=== PATIENT | female | born 1935 | race Caucasian/White ===

== ENCOUNTER 2016-09-25 14:12 | Inpatient (IN) | payer MEDICARE ==
[~2016-09-25] VITALS: Ht 160 cm; Wt 68.9 kg
[2016-09-25 14:59] LABS: BASO % 0.4 % (0.0-2.0); EOS # 0.5 (0.0-0.7); EOS % 4.5 % (0-4.0); GRAN # 7.8 (1.4-6.5); GRAN % 75.1 % (42.2-75.2); LYMPH # 1.3 (1.2-3.4); LYMPH % 12.5 % (20.0-51.0); MEAN CELL VOLUME 88 fl (80.0-100.0); MEAN CORPUSCULAR HGB CONC 33 g/dl (33.0-37.0); MEAN PLATELET VOLUME 9.1 fl (7.4-10.4); MONO # 0.7 (0.1-0.6); PLATELET COUNT 244 K/mm3 (130-400); RED BLOOD COUNT 3.71 M/mm3 (4.10-5.30); REDCELL DISTRIBUTION WIDTH-CV 13.1 % (11.5-14.5); WHITE BLOOD COUNT 10.4 K/mm3 (4.8-10.8)
[2016-09-25 15:02] LABS: HEMATOCRIT 32.5 % (37.0-47.0); HEMOGLOBIN 10.8 g/dl (12.5-16.0); MEAN CORPUSCULAR HEMOGLOBIN 29 pg (27.0-31.0)
[2016-09-25 15:09] LABS: ADJUSTED CALCIUM 9.7 mg/dL (8.4-10.2); ALBUMIN 3.8 gm/dL (3.5-5.0); BILIRUBIN,TOTAL 0.6 mg/dL (0.0-1.0); CALCIUM 9.5 mg/dL (8.4-10.2); CREATININE, serum 3.06 mg/dL (0.52-1.25); POTASSIUM 4.7 mmol/L (3.4-5.0); TOTAL PROTEIN 7.2 gm/dL (6.4-8.2)
[2016-09-25] MEDS ORDERED: ALTACE 1.25MG1.25 MG PO (15:11)
[2016-09-25] MEDS ORDERED: LIPITOR 40MG TA40 MG PO (15:12)
[2016-09-25] MEDS ORDERED: COUMADIN 22.5 MG/TAB PO (15:12)
[2016-09-25] MEDS ORDERED: COUMADIN 5MG5 MG/TAB PO (15:13)
[2016-09-25] MEDS ORDERED: CARTIA XT120 MG PO (15:13)
[2016-09-25] MEDS ORDERED: OXYCONTIN30 MG PO (15:13)
[2016-09-25] MEDS ORDERED: LASIX 20MG TABL20 MG PO (15:13)
[2016-09-25] MEDS ORDERED: LOPRESSOR 550 MG/TAB PO (15:14)
[2016-09-25] MEDS ORDERED: LEVEMIR100 U/ML SQ (15:14)
[2016-09-25] MEDS ORDERED: NOVOLOG 100U100 U/M1 SQ (15:14)
[2016-09-25 15:39] LABS: TROPONIN-I 0.048 ng/mL (0.000-0.034)
[2016-09-25 16:24] LABS: PH 6 (5-8); SQUAMOUS EPITHELIAL 0-2 /hpf; URINE APPEARANCE Clear; URINE BACTERIA Rare /hpf; URINE BILIRUBIN Negative (NEGATIVE); URINE BLOOD Negative (NEGATIVE); URINE COLOR Yellow; URINE GLUCOSE Negative (NEGATIVE); URINE KETONE Negative (NEGATIVE); URINE RBC 0-2 /hpf; URINE UROBILINOGEN Negative (NEGATIVE)
[2016-09-25 19:22] VITALS: BP 142/97; PULSE 114; TEMP 99.5
[2016-09-25 20:00] VITALS: BP 129/65; PULSE 102; TEMP 99.4
[2016-09-25 22:00] VITALS: BP 91/75; PULSE 74; TEMP 98.6
[2016-09-26] VITALS (10 sets, daily range): BP systolic 91–145; BP diastolic 46–71; PULSE 62–111; TEMP 97.8–98.9
[2016-09-26 06:01] LABS: BASO # 0.1 (0.0-0.2); BASO % 0.2 % (0.0-2.0); GRAN # 18.7 (1.4-6.5); GRAN % 87.5 % (42.2-75.2); LYMPH # 0.9 (1.2-3.4); LYMPH % 4.3 % (20.0-51.0); MEAN CELL VOLUME 87 fl (80.0-100.0); MEAN CORPUSCULAR HGB CONC 33 g/dl (33.0-37.0); MEAN PLATELET VOLUME 9.4 fl (7.4-10.4); MONO # 1.4 (0.1-0.6); MONO % 6.7 % (1.7-9.3); PLATELET COUNT 236 K/mm3 (130-400); RED BLOOD COUNT 3.57 M/mm3 (4.10-5.30); REDCELL DISTRIBUTION WIDTH-CV 13.1 % (11.5-14.5)
[2016-09-26 06:09] LABS: HEMATOCRIT 31.2 % (37.0-47.0); HEMOGLOBIN 10.3 g/dl (12.5-16.0); MEAN CORPUSCULAR HEMOGLOBIN 29 pg (27.0-31.0); WHITE BLOOD COUNT 21.4 K/mm3 (4.8-10.8)
[2016-09-26 06:26] LABS: INR 4.5 (0.8-3.0); PROTHROMBIN TIME 52.3 SECONDS (9.7-12.8)
[2016-09-26 06:38] LABS: CALCIUM 9.1 mg/dL (8.4-10.2); CREATININE, serum 2.94 mg/dL (0.52-1.25)
[2016-09-26 06:42] LABS: TROPONIN-I 0.065 ng/mL (0.000-0.034)
[2016-09-27 03:04] VITALS: BP 131/83; PULSE 110; TEMP 98.8
[2016-09-27 08:34] VITALS: BP 124/63; PULSE 120; TEMP 98.8
[2016-09-27 09:23] LABS: BASO % 0.3 % (0.0-2.0); EOS # 0.1 (0.0-0.7); EOS % 0.7 % (0-4.0); GRAN # 12.7 (1.4-6.5); GRAN % 86.5 % (42.2-75.2); LYMPH # 0.9 (1.2-3.4); MEAN CELL VOLUME 87 fl (80.0-100.0); MEAN CORPUSCULAR HGB CONC 33 g/dl (33.0-37.0); MEAN PLATELET VOLUME 9.4 fl (7.4-10.4); MONO # 0.8 (0.1-0.6); MONO % 5.7 % (1.7-9.3); PLATELET COUNT 210 K/mm3 (130-400); RED BLOOD COUNT 3.61 M/mm3 (4.10-5.30); REDCELL DISTRIBUTION WIDTH-CV 13.3 % (11.5-14.5); WHITE BLOOD COUNT 14.6 K/mm3 (4.8-10.8)
[2016-09-27 09:32] LABS: HEMATOCRIT 31.3 % (37.0-47.0); HEMOGLOBIN 10.4 g/dl (12.5-16.0); MEAN CORPUSCULAR HEMOGLOBIN 29 pg (27.0-31.0)
[2016-09-27 09:36] LABS: CALCIUM 8.9 mg/dL (8.4-10.2); CREATININE, serum 2.41 mg/dL (0.52-1.25); POTASSIUM 4.5 mmol/L (3.4-5.0)
[2016-09-27 09:38] LABS: INR 6.5 (0.8-3.0); PROTHROMBIN TIME 75.9 SECONDS (9.7-12.8)
[2016-09-27 11:53] VITALS: BP 149/52; PULSE 75; TEMP 99.3
[2016-09-27 16:04] VITALS: BP 132/50; PULSE 82; TEMP 99
[2016-09-27 20:46] VITALS: BP 154/83; PULSE 67; TEMP 98.2
[2016-09-27 23:08] VITALS: BP 135/53; PULSE 77; TEMP 98.7
[2016-09-28 03:32] VITALS: BP 118/52; PULSE 72; TEMP 98
[2016-09-28 07:23] LABS: ADJUSTED CALCIUM 9.5 mg/dL (8.4-10.2); ALBUMIN 3.2 gm/dL (3.5-5.0); BILIRUBIN,TOTAL 0.4 mg/dL (0.0-1.0); CALCIUM 8.9 mg/dL (8.4-10.2); CREATININE, serum 2.34 mg/dL (0.52-1.25); TOTAL PROTEIN 6.3 gm/dL (6.4-8.2)
[2016-09-28 07:34] LABS: PROTHROMBIN TIME 66.1 SECONDS (9.7-12.8)
[2016-09-28 07:35] LABS: INR 5.6 (0.8-3.0)
[2016-09-28 08:20] VITALS: BP 108/42; PULSE 72; TEMP 97.7
[2016-09-28] MEDS ORDERED: MULTAQ400 MG PO (10:57)
[2016-09-28] MEDS ORDERED: CEFTIN 250250 MG/TAB PO (11:05)
[2016-09-28 11:58] VITALS: BP 108/53; PULSE 68; TEMP 98.2
== END 2016-09-28 14:10 | disposition home or self-care (01) | DRG 281 ==
LOC: COL.ER 14:12 → IMCU 17:23 → MEDICAL 17:23 → IMCU 19:00 → MEDICAL 09-26 12:28
PROVIDERS: Emergency Medicine; Internal Medicine; Internal Medicine Cardiovascular Disease; Nurse Practitioner Family
DX: I21.4 Non-ST elevation (NSTEMI) myocardial infarction (principal); I50.22 Chronic systolic (congestive) heart failure; N39.0 Urinary tract infection, site not specified; N18.4 Chronic kidney disease, stage 4 (severe); I48.0 Paroxysmal atrial fibrillation; Z66 Do not resuscitate; E11.22 Type 2 diabetes mellitus with diabetic chronic kidney disease; I25.10 Atherosclerotic heart disease of native coronary artery without angina pectoris; Z79.01 Long term (current) use of anticoagulants; Z79.4 Long term (current) use of insulin; Z95.1 Presence of aortocoronary bypass graft; B96.20 Unspecified Escherichia coli [E. coli] as the cause of diseases classified elsewhere
CPT/HCPCS: 99222-AI; 99232-AI; 99233-AI; 99239; J0696; J1815; J2270; J7030

== ENCOUNTER → 2016-11-05 | Outpatient (CLI) | payer MEDICARE ==
[~2016-11-05] MED LIST: ALTACE 1.25MG1.25 MG PO; CARTIA XT120 MG PO; CEFTIN 250250 MG/TAB PO; COUMADIN 22.5 MG/TAB PO; COUMADIN 5MG5 MG/TAB PO; LASIX 20MG TABL20 MG PO; LEVEMIR100 U/ML SQ; LIPITOR 40MG TA40 MG PO; LOPRESSOR 550 MG/TAB PO; MULTAQ400 MG PO; NOVOLOG 100U100 U/M1 SQ; OXYCONTIN30 MG PO
== END ==
LOC: COL.VAS 12:19
DX: I65.22 Occlusion and stenosis of left carotid artery (principal); R09.89 Other specified symptoms and signs involving the circulatory and respiratory systems

== ENCOUNTER 2017-08-18 07:39 | Emergency (ER) | payer MEDICARE ==
[2017-08-18 07:44] VITALS: TEMP 100.6
[2017-08-18 07:53] LABS: BASO # 0.1 (0.0-0.2); BASO % 0.6 % (0.0-2.0); EOS # 0.1 (0.0-0.7); EOS % 1.1 % (0-4.0); GRAN # 7.5 (1.4-6.5); GRAN % 78.7 % (42.2-75.2); HEMATOCRIT 37.9 % (37.0-47.0); HEMOGLOBIN 12.2 g/dl (12.5-16.0); LYMPH % 10.4 % (20.0-51.0); MEAN CELL VOLUME 85 fl (80.0-100.0); MEAN CORPUSCULAR HEMOGLOBIN 27 pg (27.0-31.0); MEAN CORPUSCULAR HGB CONC 32 g/dl (33.0-37.0); MEAN PLATELET VOLUME 8.9 fl (7.4-10.4); MONO # 0.8 (0.1-0.6); MONO % 8.5 % (1.7-9.3); PLATELET COUNT 207 K/mm3 (130-400); RED BLOOD COUNT 4.47 M/mm3 (4.10-5.30); WHITE BLOOD COUNT 9.5 K/mm3 (4.8-10.8)
[2017-08-18 07:59] LABS: INR 1.2 (0.8-3.0)
[2017-08-18 08:02] LABS: ADJUSTED CALCIUM 9.4 mg/dL (8.4-10.2); ALBUMIN 4.2 gm/dL (3.5-5.0); BILIRUBIN,TOTAL 1.5 mg/dL (0.0-1.0); CALCIUM 9.6 mg/dL (8.4-10.2); CREATININE, serum 2.15 mg/dL (0.52-1.25); POTASSIUM 5.2 mmol/L (3.4-5.0); TOTAL PROTEIN 7.1 gm/dL (6.4-8.2)
[2017-08-18 08:16] LABS: TROPONIN-I 0.047 ng/mL (0.000-0.034)
[2017-08-18 08:25] LABS: INFLUENZA A NEGATIVE; INFLUENZA B NEGATIVE
[2017-08-18 08:40] LABS: ARTERIAL BLD GAS O2 SATURATION 90.7 % (92-100); ARTERIAL BLD GAS TCO2 CT 28.2; ARTERIAL BLOOD GAS BASE EXCESS 3.1 (-2-2); ARTERIAL BLOOD GAS PHT 7.46 C (7.35-7.45); ARTERIAL BLOOD GAS PO2 59.7 mmHg (80-100); ARTERIAL BLOOD GAS PO2T 59.7 (80-100); ARTERIAL BLOOD GAS pH 7.46 (7.35-7.45); OXYHEMOGLOBIN 89.8 %
[2017-08-18 08:42] LABS: ALLEN TEST YES; ALLENS TEST RESULT PASS; ATS? YES
[2017-08-18] MEDS ORDERED: CORDARONE200 MG/TAB PO (09:32)
[2017-08-18] MEDS ORDERED: LASIX 20MG TABL20 MG PO (09:32)
[2017-08-18] MEDS ORDERED: LIPITOR 40MG TA40 MG PO (09:32)
[2017-08-18] MEDS ORDERED: COUMADIN 1MG1 MG/TAB PO (09:33)
[2017-08-18] MEDS ORDERED: ROXICODONE15 MG PO (09:33)
[2017-08-18] MEDS ORDERED: CARTIA XT120 MG PO (09:34)
[2017-08-18] MEDS ORDERED: TOPROL XL 50MG50 MG PO (09:34)
[2017-08-18 10:01] LABS: COLLECTION METHOD CATHETER
[2017-08-18 10:09] LABS: PH 6 (5-8); SQUAMOUS EPITHELIAL 0-2 /hpf; URINE APPEARANCE Clear; URINE BACTERIA None Seen /hpf; URINE BILIRUBIN Negative (NEGATIVE); URINE BLOOD Negative (NEGATIVE); URINE COLOR Yellow; URINE GLUCOSE 3+ (NEGATIVE); URINE KETONE Negative (NEGATIVE); URINE LEUKOCYTE ESTERASE Trace (NEGATIVE); URINE PROTEIN(semi-quant) 1+ (NEGATIVE); URINE RBC 0-2 /hpf; URINE UROBILINOGEN Negative (NEGATIVE); URINE WBC 0-2 /hpf
[2017-08-18 10:43] VITALS: BP 141/65; PULSE 91
== END 2017-08-18 10:40 | disposition short-term general hospital (02) ==
LOC: COL.ER 07:39
PROVIDERS: Emergency Medicine
DX: I50.9 Heart failure, unspecified (principal); J96.91 Respiratory failure, unspecified with hypoxia; I48.2 Chronic atrial fibrillation; I25.10 Atherosclerotic heart disease of native coronary artery without angina pectoris; I25.2 Old myocardial infarction; Z95.1 Presence of aortocoronary bypass graft; Z95.5 Presence of coronary angioplasty implant and graft; Z79.01 Long term (current) use of anticoagulants
CPT/HCPCS: J0696; J1644; J1940; J2060; J7030

== ENCOUNTER 2018-08-01 13:30 | Outpatient (RCR) | payer MEDICARE ==
[~2018-08-01 13:30] MED LIST changes: +ASPIRIN 81M81 MG/TA2 PO; +CORDARONE200 MG/TAB PO; +COUMADIN 1MG1 MG/TAB PO; +ELIQUIS 2.5 PO; +LEVAQUIN 2250 MG/TAB PO; +MELAT3MGTAB PO; +NAMENDA 10MG TA10 MG PO; +NITROSTAT0.4 MG/TAB SL; +PAXIL 10MG10 MG PO; +ROXICODONE15 MG PO; +TOPROL XL 50MG50 MG PO
== END 2018-10-17 | disposition home or self-care (01) ==
LOC: WSC
DX: R53.1 Weakness (principal); Z91.81 History of falling
CPT/HCPCS: G8978-GP; G8979-GP

== ENCOUNTER 2018-11-30 09:42 | Inpatient (IN) | payer MEDICARE, OTHER ==
[~2018-11-30] VITALS: Ht 162.6 cm; Wt 69.3 kg
[2018-11-30] MEDS ORDERED: NORCO 325 MG-51 TAB PO (10:24)
[2018-11-30 10:47] LABS: COLLECTION METHOD CATHETER
[2018-11-30 10:50] LABS: BASO % 0.6 % (0.0-2.0); EOS # 0.1 (0.0-0.7); EOS % 1.3 % (0-4.0); GRAN # 4.3 (1.4-6.5); GRAN % 80.1 % (42.2-75.2); HEMOGLOBIN 11.2 g/dl (12.5-16.0); LYMPH # 0.3 (1.2-3.4); LYMPH % 6.3 % (20.0-51.0); MEAN CELL VOLUME 88 fl (80.0-100.0); MEAN CORPUSCULAR HEMOGLOBIN 28 pg (27.0-31.0); MEAN CORPUSCULAR HGB CONC 32 g/dl (33.0-37.0); MEAN PLATELET VOLUME 10.6 fl (7.4-10.4); MONO # 0.6 (0.1-0.6); PLATELET COUNT 136 K/mm3 (130-400); RED BLOOD COUNT 4.01 M/mm3 (4.10-5.30); REDCELL DISTRIBUTION WIDTH-CV 17.3 % (11.5-14.5)
[2018-11-30 10:51] LABS: HEMATOCRIT 35.4 % (37.0-47.0)
[2018-11-30 10:59] LABS: PH 5 (5-8); SQUAMOUS EPITHELIAL None Seen /hpf; URINE APPEARANCE Clear; URINE BACTERIA None Seen /hpf; URINE BILIRUBIN Negative (NEGATIVE); URINE BLOOD Negative (NEGATIVE); URINE COLOR Yellow; URINE GLUCOSE Negative (NEGATIVE); URINE KETONE Negative (NEGATIVE); URINE LEUKOCYTE ESTERASE Negative (NEGATIVE); URINE NITRATE Negative (NEGATIVE); URINE PROTEIN(semi-quant) 1+ (NEGATIVE); URINE RBC 0-2 /hpf; URINE UROBILINOGEN Negative (NEGATIVE)
[2018-11-30 11:04] LABS: POTASSIUM 5.1 mmol/L (3.4-5.0)
[2018-11-30 11:07] LABS: ALBUMIN 3.8 gm/dL (3.5-5.0); BILIRUBIN,TOTAL 0.8 mg/dL (0.0-1.0); C-REACTIVE PROTEIN 2.6 mg/dL (0.0-0.9); CALCIUM 9.2 mg/dL (8.4-10.2); CREATININE, serum 2.64 (0.52-1.25); TOTAL PROTEIN 6.4 gm/dL (6.4-8.2)
[2018-11-30 11:14] LABS: ERYTHROCYTE SEDIMENTATION RATE 1 mm/hr (0-30)
--- NOTE | 2018-11-30 13:50 | NUR ---
PT BROUGHT TO ROOM FROM ED. HELPED PT ONTO COMMODE AND ORIENTED PT TO ROOM.
[2018-11-30 14:07] VITALS: BP 109/79; PULSE 117; TEMP 99.6
[2018-11-30] MEDS ORDERED: PROTONIX 40MG T40 MG PO (15:13)
[2018-11-30] MEDS ORDERED: CORTISPORIN OTI10 ML OT (15:14)
[2018-11-30] MEDS ORDERED: NITROSTAT0.4 MG/TAB SL (15:15)
[2018-11-30] MEDS ORDERED: ASPIRIN 81M81 MG/TA2 PO (15:15)
[2018-11-30] MEDS ORDERED: ALBUTEROL0.83 MG/ML IH (15:17)
[2018-11-30] MEDS ORDERED: LOPRESSOR 550 MG/TAB PO (15:19)
[2018-11-30] MEDS ORDERED: ULTRAM 50MG TAB50 MG PO (15:19)
[2018-11-30] MEDS ORDERED: SSD25 GM TP (15:22)
[2018-11-30 16:06] VITALS: BP 127/70; PULSE 116; TEMP 99.3
--- NOTE | 2018-11-30 19:05 | NUR ---
Pt lying in bed, eyes closed. Gave hand off report to Elena ALONZO.
[2018-11-30 20:06] VITALS: BP 134/114; PULSE 121; TEMP 99
--- NOTE | 2018-11-30 20:21 | NUR ---
Heart rate has been increasing in the 130s with any type of exertion. Does decrease at rest, 110-120s. Called and let hospitalist know. New EKG was performed. Continues to have A-fib. Given scheduled HS medications as ordered. No further orders at this time. Sore to right hip open to air. Sores to toes open to air. Denies having pain and discomfort. Patient's breathing is labored with any exertion, and complains of SOB. LS CTA on right, rhonchi on left. Peripheral INT to left AC is patent, and without redness, warmth, swelling, and pain. Skin is pale. Denies having any needs or concerns at this time. Call light is within reach.
[2018-11-30 20:45] VITALS: BP 107/62; PULSE 108; TEMP 99.2
--- NOTE | 2018-11-30 22:48 | NUR ---
VS rechecked at 2044: 99.2 108 18 107/62 96% RA.
[2018-11-30 23:07] VITALS: BP 95/67; PULSE 98; TEMP 99
--- NOTE | 2018-11-30 23:24 | NUR ---
Patient showing s/s of pain and discomfort: facial grimacing, yelling out, moaning, etc. When asked patient rated pain at a 8, unable to describe. Given PRN Percocet per orders. Repositioned in bed, and given warm blanekt. Voices no other needs or concerns at this time. In bed at this time. Call light is within reach. Bed alarm is on.
[2018-12-01 04:55] VITALS: BP 136/69; PULSE 92; TEMP 97.3
--- NOTE | 2018-12-01 05:45 | NUR ---
Patient yelling out around 0415. Stated she was having pain. Patient with facial grimacing. Unable to describe pain. Given PRN Oxycodone per orders. Patient diaphoretic at that time. Blood sugar checked with a result of 54. Rechecked to make sure it was accurate, result was 52. Given 4 oz orange juice. BS rechecked at 0450 with a result of 88. Stated that she was feeling better. Call placed to [facility]. Given update on blood sugar. New order received for hypoglycemic protocol, and to change sliding scale insluin from high to moderate. MAR updated. Patient has been repositioned from left side to back throughout the night to stay off of pressure ulcer to right hip. LS continues have rhonchi in all lobes at this time. Has more frequent moist cough, but unable to produce sputum. Oxygen level 97% RA. Denies having SOB and dypsnea. HOB left elevated. Patient's heart rate has not been noted to increase above 120s since the beginning of the shift. Patient resting in bed with eyes closed at this time. Call light is within reach.
[2018-12-01 07:17] VITALS: BP 125/62; PULSE 83; TEMP 97.5
[2018-12-01 09:13] LABS: BASO % 0.4 % (0.0-2.0); EOS % 0.3 % (0-4.0); GRAN % 79.1 % (42.2-75.2); HEMOGLOBIN 10.3 g/dl (12.5-16.0); LYMPH # 0.7 (1.2-3.4); LYMPH % 8.7 % (20.0-51.0); MEAN CELL VOLUME 89 fl (80.0-100.0); MEAN CORPUSCULAR HEMOGLOBIN 28 pg (27.0-31.0); MEAN CORPUSCULAR HGB CONC 32 g/dl (33.0-37.0); MEAN PLATELET VOLUME 10.5 fl (7.4-10.4); MONO # 0.8 (0.1-0.6); MONO % 10.6 % (1.7-9.3); PLATELET COUNT 128 K/mm3 (130-400); RED BLOOD COUNT 3.66 M/mm3 (4.10-5.30); REDCELL DISTRIBUTION WIDTH-CV 17.4 % (11.5-14.5)
[2018-12-01 09:19] LABS: CALCIUM 8.5 mg/dL (8.4-10.2); CREATININE, serum 2.65 (0.52-1.25); POTASSIUM 4.4 mmol/L (3.4-5.0)
[2018-12-01 09:36] LABS: HEMATOCRIT 32.7 % (37.0-47.0)
[2018-12-01 11:16] VITALS: BP 100/47; PULSE 76; TEMP 97.5
--- NOTE | 2018-12-01 13:14 | NUR ---
SW attended clinical rounds to discuss discharge planning. Patient lives at home with her , Osei, but patient's son, Jamshid, and Osei report patient needs intermodal customer service care because Osei cannot care for patient at home anymore. Patient's PCP is Dr Alcaraz and she obtains prescriptions from [facility]. Patient doesn't currently use any home health services and she uses a wheelchair for mobility. Patient's son in unsure if patient has a DPOA. Jamshid also reported Osei has looked into [facility] for prison care and he has looked at [facility]. SW provided medicare.gov nursing facility resource list. SW will follow up with patient and family to complete choice form. Patient's son also expressed meeding help with completing a medicaid application for patient. WALI contacted Amy, financial counselor, and she will meet with patient this afternoon.
--- NOTE | 2018-12-01 13:50 | NUR ---
Pt family stated pt was diaphoretic. Checked BS, came back 51. Gave pt two cups of orange juice, and crackers with peanut butter. Rechecked in 20 min and went up to 74. Will continue to monitor.
--- NOTE | 2018-12-01 15:24 | NUR ---
Pt bs was 68. Gave orange juice and more crackers with peanut butter. Will recheck.
[2018-12-01 15:57] VITALS: BP 96/42; PULSE 68; TEMP 97.5
--- NOTE | 2018-12-01 16:42 | NUR ---
Pt lying in bed, awakes to touch. Cleaned right hip pressure ulcer with ready bath, rinsed with saline and patted dry. Added skin barrier wipe, [employer] to eschar and put allevyn on.
--- NOTE | 2018-12-01 18:43 | NUR ---
PT LYING IN BED WITH EYES CLOSED. BRAUN OFF REPORT GIVEN TO JAMI ALONZO
[2018-12-01 21:56] VITALS: BP 141/92; PULSE 110; TEMP 99.5
--- NOTE | 2018-12-01 22:05 | NUR ---
Blood sugar checked with a result of 56. Called to [facility] to request to initiate PRN order for D10W at 50 ml/hr due to blood sugars not being above 88 throughout the day. Also asked f she wanted Levemir to be held tonight. Order received to start the D10W per PRN order. Also hold Levemir for tonight. Also to start patient on supplemental drinks due to poor oral nutritional intake. Patient given Ensure. Patient assisted to the commode and urinated. Complaining of pain to back, rated at a 4. When asked to describe pain, patient stated it was "violent." Given PRN Oxycodone. Patient is on oxygen at 1 L/min via NC. Does complain of SOB and dyspnea with exertion. Also, while transferring, patient's heart rate increased to above 130s. Continues to have frequent moist cough, unable to produce sputum. In bed at this time. Call light is within reach.
--- NOTE | 2018-12-01 22:23 | NUR ---
Blood sugar rechecked with a result of 78.
[2018-12-01 23:07] VITALS: BP 105/70; PULSE 124; TEMP 98.5
[2018-12-02 03:46] VITALS: BP 115/83; PULSE 123; TEMP 99.6
--- NOTE | 2018-12-02 03:55 | NUR ---
Patient was given PRN Oxycodone for complaints of pain at beginning of shift. Patient went to the bathroom at 0330. Complaining of severe pain. Patient moaning, having facial grimacing, and stated that she is having level 8 pain to back, radiating to her hips. Given PRN Oxycodone as requested for pain. Repositioned in bed. Voices no other needs or concerns at this time. Continues on D10W at 50 ml/hr to peripheral IV to right AC. Continues to wear oxygen at 1 L/min via NC. Resting in bed with eyes closed at this time. Call light is within reachh.
--- NOTE | 2018-12-02 05:43 | NUR ---
Blood sugar checked with a result of 224. D10W IV stopped. Patient states that she is not having any pain or discomfort at this time, but states that as soon as she moves she starts to have pain. Voices no needs or concerns at this time. Patient smiling when staff talk with her, and thankful towards staff. Resting in bed with eyes closed at this time. Call light is within reach.
--- NOTE | 2018-12-02 07:00 | NUR ---
Received bedside report from cook night nurse. Pt was in bed and awake, stated no needs at this time. Will continue to monitor.
[2018-12-02 08:10] VITALS: BP 93/57; PULSE 72; TEMP 98.4
[2018-12-02 08:24] LABS: BASO % 0.3 % (0.0-2.0); EOS % 0.4 % (0-4.0); GRAN # 6.7 (1.4-6.5); GRAN % 84.3 % (42.2-75.2); HEMATOCRIT 32.5 % (37.0-47.0); HEMOGLOBIN 10.1 g/dl (12.5-16.0); LYMPH # 0.6 (1.2-3.4); LYMPH % 7.8 % (20.0-51.0); MEAN CELL VOLUME 89 fl (80.0-100.0); MEAN CORPUSCULAR HEMOGLOBIN 28 pg (27.0-31.0); MEAN CORPUSCULAR HGB CONC 31 g/dl (33.0-37.0); MEAN PLATELET VOLUME 10.2 fl (7.4-10.4); MONO # 0.5 (0.1-0.6); MONO % 6.4 % (1.7-9.3); PLATELET COUNT 123 K/mm3 (130-400); RED BLOOD COUNT 3.67 M/mm3 (4.10-5.30); REDCELL DISTRIBUTION WIDTH-CV 17.2 % (11.5-14.5)
[2018-12-02 08:39] LABS: CALCIUM 8.1 mg/dL (8.4-10.2); CREATININE, serum 2.61 (0.52-1.25); POTASSIUM 4.8 mmol/L (3.4-5.0)
--- NOTE | 2018-12-02 09:00 | NUR ---
Assessment charted with crackles and wheezes noted. Pt dislodged IV and new one was placed in right forearm with two attempts. Pt coughing with wet sounding lungs and unable to expectorate. Pt is complaining of pain in right hip, but states that pain is better controlled today. Held Levemir insulin due to previous trouble keeping blood sugars controlled. Also held blood pressure medications per Dr. Rodas' direction due to low blood pressure. Placed new dressing on right hip for wound. O2 is on at 1 L. Doctor will be to visit shortly, will inform him about the wet sounding lungs. Will continue to monitor.
--- NOTE | 2018-12-02 09:44 | NUR ---
WALI met with patient's , Osei, and son, Jamshid, about SNF choice form. Jamshid reports he spoke with Rhonda from [facility] and she is planning to visit patient today. Osei signed choice form for 1. [facility] and 2. [facility]. SW will fax referrals to both facilities and also inform them that patient will need terminal worker care after a skilled stay.
[2018-12-02 13:07] VITALS: BP 107/66; PULSE 77; TEMP 98.4
[2018-12-02 16:34] VITALS: BP 117/51; PULSE 74; TEMP 98.2
--- NOTE | 2018-12-02 18:36 | NUR ---
Pt has stated that her pain was better controlled today, with less throbbing pain in her hip. Her appetite had been diminish with most meals, but she ate well for supper. Pt did well getting up to the commode with x2 assist. Will continue to monitor pt until bedside report is given to the nightshift nurse.
[2018-12-02 19:52] VITALS: BP 98/69; PULSE 86; TEMP 98.2
--- NOTE | 2018-12-02 22:34 | NUR ---
Patient assessed around 2100. Patient with audible gurgles heard. LS with coarse crackles throughout. Oxygen level 97% on oxygen at 1 L/min via NC. Denies having SOB and dypsnea, but does complain and have labored breathing with any type of exertion, even repositioning in bed. RT gave nebulizer treatment. Heart rate irregular, chronic for patient. Bowel sounds hypoactive. Denies feeling constipated at this time. Does report she is still passing gas. Abdomen soft, nondistended, and non-tender. Non-pitting edema noted to bilateral hands. 1+ edema continues to BLE. Dressings to right hip and right thigh are CDI. Denies having any needs or concerns at this time. Denies having pain and discomfort. No s/sx of pain or discomfort noted so far this shift, such as facial grimacing and moaning. Resting in bed with eyes closed at this time. Call light is within reach.
[2018-12-02 23:13] VITALS: BP 97/75; PULSE 105; TEMP 100
--- NOTE | 2018-12-03 04:27 | NUR ---
Patient has received pain medication once so far this shift for back pain. Continues to wear oxygen at 1 L/min via NC. LS coarse crackles. Frequent moist cough continues, increases when awake. HOB remains elevated in bed. Denies having SOB and dyspnea. Voices no needs or concerns at this time. Resting in bed with eyes closed at this time. Call light is within reach.
[2018-12-03 05:09] VITALS: BP 94/65; PULSE 64; TEMP 98
[2018-12-03 06:27] LABS: BASO % 0.3 % (0.0-2.0); EOS # 0.1 (0.0-0.7); EOS % 0.7 % (0-4.0); GRAN # 5.7 (1.4-6.5); HEMOGLOBIN 10.7 g/dl (12.5-16.0); LYMPH # 0.7 (1.2-3.4); LYMPH % 10.3 % (20.0-51.0); MEAN CELL VOLUME 88 fl (80.0-100.0); MEAN CORPUSCULAR HEMOGLOBIN 28 pg (27.0-31.0); MEAN CORPUSCULAR HGB CONC 31 g/dl (33.0-37.0); MEAN PLATELET VOLUME 10.1 fl (7.4-10.4); MONO # 0.5 (0.1-0.6); MONO % 6.9 % (1.7-9.3); PLATELET COUNT 125 K/mm3 (130-400); RED BLOOD COUNT 3.87 M/mm3 (4.10-5.30); REDCELL DISTRIBUTION WIDTH-CV 17.2 % (11.5-14.5)
[2018-12-03 06:31] LABS: HEMATOCRIT 34.1 % (37.0-47.0)
[2018-12-03 06:32] LABS: CREATININE, serum 2.52 (0.52-1.25); POTASSIUM 4.4 mmol/L (3.4-5.0)
[2018-12-03 08:36] VITALS: BP 100/52; PULSE 71; TEMP 97.8
--- NOTE | 2018-12-03 08:57 | NUR ---
Pt assessment complete. Pt is A/O x3. She is currently sitting up in bed eating breakfast. Pt is hard of hearing but A/O x3. Her breathing is unlabored but patient has audible gurgling, pt reminded to cough and deep breath. Pt denies SOB. Pain to lower back/R hip, lidoderm patch placed to area. Pt denies any N/V. No needs at this time. Call light within reach, at bedside.
--- NOTE | 2018-12-03 10:56 | NUR ---
WALI contacted [facility] about accepting the patient for a prison stay. [facility] has accepted the patient for services upon discharge. WALI faxed update to [facility]. WALI will continue to follow.
[2018-12-03 11:36] VITALS: BP 95/59; PULSE 105; TEMP 98.7
[2018-12-03 18:16] VITALS: BP 103/60; PULSE 98; TEMP 98.1
--- NOTE | 2018-12-03 19:10 | NUR ---
Pt had uneventful day. Pt did not have any needs or concerns. Pain well controlled with patch and PRN pain medications. Pt denies needs at this time. Call light within reach.
[2018-12-03 19:59] VITALS: BP 90/53; PULSE 80; TEMP 98.8
--- NOTE | 2018-12-03 20:20 | NUR ---
Pt resting in bed napping, has a dry cough, has some C/O pain, shift assessments complete, left Pt call light in reach, bed in lowest position.
[2018-12-03 23:47] VITALS: BP 113/98; PULSE 86; TEMP 99.2
[2018-12-04] VITALS (292 sets, daily range): BP systolic 92–109; BP diastolic 51–76; PULSE 76–147; TEMP 97.8–99.4; O2SAT 74–100
--- NOTE | 2018-12-04 05:07 | NUR ---
Pt slept some during the night, she did have C/O pain in her buttox area around the location where the wound is located, and in her back related to her chronic back pain, medications were administered for pain relief. VS have remained stable overnight.
--- NOTE | 2018-12-04 07:42 | NUR ---
Pt assessment complete. Pt is moaning in bed upon entry, pt reports pain "everywhere", she also admits to SOB. Tracheal gurgling audible, pt encouraged to cough and deep breath. Pt assisted to the cammode with 2 assist, patient very weak. Urinated 100mls, bladder scan performed post void, 217ml visualized. Dressings to R hip, R thigh and LFA changed. RT contacted for breathing treatment. at bedside at this time. Will continue to monitor.
--- NOTE | 2018-12-04 08:27 | NUR ---
Pt seems to be resting more comfortably at this time. Breathing unchanged after breathing treatment. 5mg IV Lopressor given at this time, per Dr. Rodas order. at bedside. Will continue to monitor.
[2018-12-04 08:40] LABS: BASO % 0.3 % (0.0-2.0); EOS % 0.4 % (0-4.0); GRAN # 6.2 (1.4-6.5); HEMOGLOBIN 11.3 g/dl (12.5-16.0); LYMPH # 0.6 (1.2-3.4); LYMPH % 7.9 % (20.0-51.0); MEAN CELL VOLUME 87 fl (80.0-100.0); MEAN CORPUSCULAR HEMOGLOBIN 28 pg (27.0-31.0); MEAN CORPUSCULAR HGB CONC 32 g/dl (33.0-37.0); MEAN PLATELET VOLUME 10.2 fl (7.4-10.4); MONO # 0.4 (0.1-0.6); MONO % 5.4 % (1.7-9.3); PLATELET COUNT 127 K/mm3 (130-400); RED BLOOD COUNT 4.06 M/mm3 (4.10-5.30); REDCELL DISTRIBUTION WIDTH-CV 16.9 % (11.5-14.5)
[2018-12-04 08:42] LABS: HEMATOCRIT 35.2 % (37.0-47.0)
[2018-12-04 08:47] LABS: CALCIUM 7.9 mg/dL (8.4-10.2); CREATININE, serum 2.42 (0.52-1.25)
--- NOTE | 2018-12-04 11:10 | NUR ---
Report given to CLINTON Berry in ICU. Patient's family at bedside, updated with POC. Verbalized understanding, pt wheeled to ICU at this time.
--- NOTE | 2018-12-04 11:11 | NUR ---
Telephone report received from CLINTON Slade.
--- NOTE | 2018-12-04 11:20 | NUR ---
Patient transferred to ICU#8 via bed from [facility]. Assessment complete, patient moaning in pain. Family at bedside. Dr. Medina here to speak with family.
--- NOTE | 2018-12-04 12:15 | NUR ---
Family has decided to make patient comfort care at this time.
--- NOTE | 2018-12-04 18:01 | NUR ---
Report called to CLINTON Slade.
--- NOTE | 2018-12-04 18:35 | NUR ---
Patient transferred to [facility] via bed, with all belongings.
--- NOTE | 2018-12-04 19:16 | NUR ---
Pt arrived back to room 312, she is moaning in bed, PRN Roxanol administered. at bedside, report given to CLINTON Parker.
--- NOTE | 2018-12-04 20:15 | NUR ---
Shift assessment complete. Pt resting calmly in bed, drowsy but able to wake. Resp reg et even c occasional moans. Occasional grimace noted. PRN pain medications admin per comfort order set. Repositioned for comfort. Pt s further needs. Call light in reach, bed alarm on et pt visible from nurses station. Will monitor closely.
--- NOTE | 2018-12-05 02:26 | NUR ---
Pt resting in bed, drowsy. Able to wake pt for brief periods to assess pain et other needs. Pt makes limited eye contact et int nods head appropriately to yes/no questions, but is otherwise very minimally responsive. Pt has been resting c min movement but frequent moaning. Treacheal sounds increasingly audible. Pt repositioned for comfort. Bed alarm on et pt visible from nurses station. Will continue to monitor.
--- NOTE | 2018-12-05 05:03 | NUR ---
Pt resting in bed, condition unchanged. Pt continues to have int moan et facial grimmace. Continue repositioning et PRN meds for comfort.
--- NOTE | 2018-12-05 08:10 | NUR ---
Report received, patient is resting in bed with eyes closed, is attempting to give patient water, she does not accept. verbalizes that he feels patient is overmedicated and is wanting her to become more alert. He is noted to be touching patient and continuing to give her water, she is noted to start grimacing and moaning. He requests for her to receive pain medication. Son is also at bedside. He is involved wanting to know vital signs. Radial pulse is attempted to be obtained but patient is very edematous on her arms, when palpating, patient is noted to have pitting edema over her wrists which caused her pain. Did check with Spo2 monitor and heart rate is elevated in 120-130s, oxygen is observed to be 82-83%. wishes for patient to wear oxygen and will try to keep it on her as he says it tends to bother her. Patient placed on 2L 02 via NC per his request. Call light is placed in a convienent place. Offered son and refreshments and they declined. Did let them know where the nutrition room was so they could help themselves. No other needs identified.
--- NOTE | 2018-12-05 11:17 | NUR ---
Met with son and at bedside this morning to discuss what comfort care is and what they are expecting. is concerned that his is being overmedicated and does not want that. He is very clear that she should always be sitting up as this causes her the least back pain. SHE SHOULD NEVER LAY JORGE L THIS WILL ESCALATE HER PAIN QUICKLY. It is clearly a very difficult decision for Osei to make. He doesn't want her to suffer but he still hopes for a recovery. He doesn't want her to go through what she has been dealing with again. Family has contacted Dr Alcaraz and Dr Rodas will request a visit from him to help family with this decision. Currently wants to continue with comfort care.
--- NOTE | 2018-12-05 11:35 | NUR ---
Comfort care quilt provided with explanation. Support provided to family. Left hand elevated on pillow as rings are getting tight, in an effort to reduce swelling.
--- NOTE | 2018-12-05 11:47 | NUR ---
Nursing staff offered to reposition patient, family declined stating she looks comfortable and wishes to leave her alone. They will let us know when they would like her to move or needs pain medication.
--- NOTE | 2018-12-05 11:55 | NUR ---
Son remains at bedside, offered to reposition patient, he declined stating she looked very comfortable. He stated he would notify staff of any needs.
--- NOTE | 2018-12-05 12:09 | NUR ---
First visit from the wrap checker. No needs right now.
--- NOTE | 2018-12-05 13:05 | NUR ---
SW met with patient and son during clinical rounding. Patients family made the decision to go comfort care yesterday however son feels that father is confused about what that means and asked dr to come back to talk to him. Pallative care nurse and Dr Rodas both talked with patients and he is agreeable to continue with comfort care. SW will follow up with family for discharge plan at a later time as patients is needing some time to decide where to go.
--- NOTE | 2018-12-05 14:17 | NUR ---
has gone home and son remains at bedside. Support provided. Pt appears comfortable at this check. Considering hospice house for care if needed past this hospital stay.
--- NOTE | 2018-12-05 17:58 | NUR ---
Patient is resting in bed, son and daughter in law are at bedside. Son wishes for patient to have pain medication again along with some ativan. He said he notices her to grimace. This was administered per request. Son does verbalize concern for pain management over night as patient's plans on staying the night. I did tell him that I would discuss this with the overnight associate and perhaps he could speak with the nurse as well. He was pleased and happy to do so. After giving the patient medication she appeared to have relaxed and grimacing has stopped. Patient is resting comfortably. Is noted to have an elevated temp of 101.4. Son would like for patient to be left alone regarding this as she does not appear to be in any distress to him.
--- NOTE | 2018-12-05 19:40 | NUR ---
Shift assessment complete. Pt resting in bed, minimally responsive to painful stimuli only. Resp labored c int grunting/moaning noted. Increased treacheal gurgling noted. Avila express concerns about her "drowning" and "suffering". Discussed normal changes r/t the dying process at length. Discussed PRN medications for comfort that may also reduce air hunger. Avila states "well she's miserable, just give her whatever you can." PRN meds admin. No further needs at this time. Call light in reach, will monitor closely.
--- NOTE | 2018-12-06 00:18 | NUR ---
Upon entering room, pt noted to have agonal/reflexive resp. Pt found to have no heart tones present. hydrochloric manufacturing supervisor noted. Hu remains at bedside, called son and is waiting for him to arrive. Hu denies further needs at this time.
--- NOTE | 2018-12-06 02:00 | NUR ---
Pt family leaving at this time. Avila taking all pt's belongings c him.
--- NOTE | 2018-12-06 02:20 | NUR ---
Hygiene cares provided. INT removed. Pt released to [facility] at this time.
== END 2018-12-06 02:20 | disposition expired | DRG 291 ==
LOC: COL.ER 09:42 → MEDICAL 13:08 → ICU 12-04 11:16 → MEDICAL 12-04 19:22
PROVIDERS: Emergency Medicine; Hospitalist; Physician Assistant; ADMIT Family Medicine
DX: I50.23 Acute on chronic systolic (congestive) heart failure (principal); J96.01 Acute respiratory failure with hypoxia; N18.4 Chronic kidney disease, stage 4 (severe); F05 Delirium due to known physiological condition; E87.1 Hypo-osmolality and hyponatremia; E44.0 Moderate protein-calorie malnutrition; Z51.5 Encounter for palliative care; Z66 Do not resuscitate; I48.2 Chronic atrial fibrillation; L89.212 Pressure ulcer of right hip, stage 2; G89.29 Other chronic pain; M54.5 Low back pain; E11.22 Type 2 diabetes mellitus with diabetic chronic kidney disease; Z95.1 Presence of aortocoronary bypass graft; Z79.4 Long term (current) use of insulin; E87.5 Hyperkalemia; F03.90 Unspecified dementia, unspecified severity, without behavioral disturbance, psychotic disturbance, mood disturbance, and anxiety; I25.10 Atherosclerotic heart disease of native coronary artery without angina pectoris; I27.20 Pulmonary hypertension, unspecified; E11.65 Type 2 diabetes mellitus with hyperglycemia; D63.1 Anemia in chronic kidney disease; E86.0 Dehydration; E11.649 Type 2 diabetes mellitus with hypoglycemia without coma; D69.6 Thrombocytopenia, unspecified; Z68.26 Body mass index [BMI] 26.0-26.9, adult
CPT/HCPCS: 99222-AI; 99232-AI; 99233-AI; 99238; J1815; J1940; J2060; J2270; J3010; J7030